=== PATIENT | female | born 1985 | race Hispanic/Latino ===

== ENCOUNTER 2023-04-11 20:22 | Emergency (ER) | payer MEDICAID, OTHER ==
[~2023-04-11] VITALS: Ht 162.6 cm; Wt 134.7 kg
[2023-04-11 22:42] LABS: HEMATOCRIT 38.1 % (36-48); MEAN CORPUSCULAR HEMOGLOBIN 29.1 pg (27.0-33.0); MEAN CORPUSCULAR HGB CONC 33.3 g/dL (32.0-36.0); MEAN CORPUSCULAR VOLUME 87.4 fL (79-99); RED BLOOD CELL COUNT(AUTO) 4.36 MIL/uL (4.00-5.50); RED CELL DISTRIBUTION WIDTH 16.8 % (11.0-15.5); WHITE BLOOD COUNT (AUTO) 7.9 K/uL (4.8-10.8)
[2023-04-11 22:53] LABS: CREATININE 0.9 mg/dL (0.5-1.5); POTASSIUM 3.3 mmol/L (3.5-5.1)
[2023-04-11] MEDS ORDERED: KETOROLAC 30MG VIAL (30MG/ML) IVP ONE (23:00)
[2023-04-11] MEDS ORDERED: METOCLOPRAMIDE 10 MG/2 ML VIAL IVP ONE (23:00)
[2023-04-11] MEDS ORDERED: MECLIZINE HCL 25 MG TABLET PO ONE (23:00)
[2023-04-11] MEDS ORDERED: FAMOTIDINE 20MG VIAL IV ONE (23:00)
[2023-04-11 23:59] VITALS: BP 138/66; PULSE 69; RESP 16; O2SAT 98
[2023-04-12] MEDS ORDERED: METO-296 PO (00:07)
[2023-04-12] MEDS ORDERED: CYCL10TA16 PO (00:07)
[2023-04-12] MEDS ORDERED: MECL-302 PO (00:07)
== END 2023-04-12 00:18 | disposition home or self-care (01) ==
LOC: EDH 20:22
DX: G44.209 Tension-type headache, unspecified, not intractable (principal); H81.10 Benign paroxysmal vertigo, unspecified ear; M62.830 Muscle spasm of back; Z90.49 Acquired absence of other specified parts of digestive tract
CPT/HCPCS: 99284; 96374; 96375; 82550; 84484; 80048; 85027; 36415; 93005; J3490; J1885; J2765

== ENCOUNTER 2023-09-17 01:04 | Emergency (ER) | payer OTHER ==
[~2023-09-17] VITALS: Ht 162.6 cm; Wt 134.7 kg
[~2023-09-17 01:04] MED LIST: CYCL10TA16 PO; MECL-160 PO; METO-296 PO
[2023-09-17 01:59] LABS: BASOPHILS # (AUTO) 0.02 K/uL (0.00-0.20); BASOPHILS % (AUTO) 0.2 % (0.0-5.0); EOSINOPHILS % (AUTO) 1.2 % (0.0-8.0); IMMATURE GRANULOCYTE ABSOLUTE 0.03 K/uL (0-1); LYMPHOCYTES % (AUTO) 24.2 % (21.0-51.0); MEAN CORPUSCULAR HEMOGLOBIN 31.9 pg (27.0-33.0); MEAN CORPUSCULAR HGB CONC 34.2 g/dL (32.0-36.0); MEAN CORPUSCULAR VOLUME 93.4 fL (79-99); MONOCYTES # (AUTO) 0.5 K/uL (0.1-1.0); MONOCYTES % (AUTO) 6.5 % (3.0-13.0); NEUTROPHILS # (AUTO) 5.6 K/uL (1.8-7.7); NEUTROPHILS % (AUTO) 67.5 % (40.0-77.0); PLATELET COUNT (AUTO) 282 K/uL (130-400); RED BLOOD CELL COUNT(AUTO) 4.07 MIL/uL (4.00-5.50); RED CELL DISTRIBUTION WIDTH 12.5 % (11.0-15.5); WHITE BLOOD COUNT (AUTO) 8.3 K/uL (4.8-10.8)
[2023-09-17 02:11] LABS: CREATININE 0.8 mg/dL (0.5-1.5); POTASSIUM 3.7 mmol/L (3.5-5.1)
[2023-09-17 02:15] LABS: ALBUMIN 3.6 g/dL (3.5-5.0); BILIRUBIN,TOTAL 0.3 mg/dL (0.2-1.0); TOTAL PROTEIN, SERUM 7.4 g/dL (6.0-8.3)
[2023-09-17 03:48] LABS: ADD UA MICROSCOPIC YES; BILIRUBIN,URINE NEGATIVE (NEGATIVE); COLOR,URINE RED (YELLOW); GLUCOSE, URINE (UA) NEGATIVE (NEGATIVE); KETONES,URINE NEGATIVE (NEGATIVE); LEUKOCYTE ESTERASE ,URINE TRACE Leu/uL (NEGATIVE); NITRATE,URINE NEGATIVE (NEGATIVE); OCCULT BLOOD,URINE LARGE (NEGATIVE); PROTEIN,URINE 100 mg/dL (NEGATIVE); UROBILINOGEN,URINE 0.2 mg/dL (0.2-1.0)
[2023-09-17 03:56] LABS: APPEARANCE,URINE CLEAR (CLEAR)
[2023-09-17 04:01] LABS: BACTERIA,URINE Few /HPF (None Seen); SQUAMOUS EPITHELIAL CELL,UR Rare /HPF (0-2)
[2023-09-17] MEDS: LORAZEPAM 1 MG TABLET PO ONE (05:50)
[2023-09-17 07:08] VITALS: BP 135/74; PULSE 73; RESP 18; O2SAT 100
== END 2023-09-17 07:12 | disposition home or self-care (01) ==
LOC: EDH 01:04
DX: R20.2 Paresthesia of skin (principal); J45.909 Unspecified asthma, uncomplicated; Z79.899 Other long term (current) drug therapy; Z90.49 Acquired absence of other specified parts of digestive tract
CPT/HCPCS: 36415; 80053; 81001; 81025; 85025

== ENCOUNTER 2023-10-16 16:39 | Emergency (ER) | payer OTHER ==
[~2023-10-16] VITALS: Ht 162.6 cm; Wt 132.0 kg
[~2023-10-16 16:39] MED LIST changes: -MECL-160 PO; +MECL-302 PO
[2023-10-16 17:41] LABS: BASOPHILS # (AUTO) 0.03 K/uL (0.00-0.20); BASOPHILS % (AUTO) 0.4 % (0.0-5.0); EOSINOPHILS # (AUTO) 0.04 K/uL (0.00-0.70); EOSINOPHILS % (AUTO) 0.6 % (0.0-8.0); HEMATOCRIT 38.4 % (36-48); IMMATURE GRANULOCYTE ABSOLUTE 0.03 K/uL (0-1); LYMPHOCYTES # (AUTO) 1.4 K/uL (1.0-4.8); LYMPHOCYTES % (AUTO) 20.2 % (21.0-51.0); MEAN CORPUSCULAR HEMOGLOBIN 32.1 pg (27.0-33.0); MEAN CORPUSCULAR HGB CONC 34.9 g/dL (32.0-36.0); MEAN CORPUSCULAR VOLUME 91.9 fL (79-99); MONOCYTES # (AUTO) 0.4 K/uL (0.1-1.0); MONOCYTES % (AUTO) 5.8 % (3.0-13.0); NEUTROPHILS # (AUTO) 5.2 K/uL (1.8-7.7); NEUTROPHILS % (AUTO) 72.6 % (40.0-77.0); PLATELET COUNT (AUTO) 297 K/uL (130-400); RED BLOOD CELL COUNT(AUTO) 4.18 MIL/uL (4.00-5.50); RED CELL DISTRIBUTION WIDTH 12.5 % (11.0-15.5); WHITE BLOOD COUNT (AUTO) 7.1 K/uL (4.8-10.8)
[2023-10-16 17:54] LABS: CREATININE 0.7 mg/dL (0.5-1.0)
[2023-10-16 17:58] LABS: ALBUMIN 3.9 g/dL (3.5-5.0); BILIRUBIN,TOTAL 0.5 mg/dL (0.2-1.0); TOTAL PROTEIN, SERUM 7.9 g/dL (6.0-8.3)
[2023-10-16] MEDS: METOCLOPRAMIDE 10 MG/2 ML VIAL IVP ONE (18:24)
[2023-10-16] MEDS: 0.9%NACL 1000ML 1,000 ML IV ONE (18:24)
[2023-10-16] MEDS: CHLORPROMAZINE HCL 25 MG/ML 1ML AMP IM SCH (18:24)
[2023-10-16] MEDS: SUMATRIPTAN SUCCINATE 25 MG TABLET PO SCH (18:24)
[2023-10-16] MEDS: FAMOTIDINE 20MG VIAL IV ONE (18:24)
[2023-10-16] MEDS: KETOROLAC 30MG VIAL (30MG/ML) IVP ONE (20:20)
[2023-10-16 20:53] VITALS: BP 120/78; PULSE 80; RESP 18; O2SAT 100
== END 2023-10-16 20:57 | disposition home or self-care (01) ==
LOC: EDH 16:39
DX: G43.909 Migraine, unspecified, not intractable, without status migrainosus (principal); R42 Dizziness and giddiness; J45.909 Unspecified asthma, uncomplicated; Z79.899 Other long term (current) drug therapy; Z98.890 Other specified postprocedural states
CPT/HCPCS: 99285; 96374; 70450; 96361; 96375; 84484; 80053; 84703; 85025; 36415; 93005; 96372; J3490; J7030; J3230; J1885; J2765

== ENCOUNTER 2023-12-03 14:04 | Inpatient (IN) | payer OTHER ==
[~2023-12-03] VITALS: Ht 162.6 cm; Wt 132.0 kg
[2023-12-03] MEDS: KETOROLAC 30MG VIAL (30MG/ML) IVP ONE (14:30)
[2023-12-03 15:06] LABS: BASOPHILS # (AUTO) 0.04 K/uL (0.00-0.20); BASOPHILS % (AUTO) 0.2 % (0.0-5.0); EOSINOPHILS # (AUTO) 0.06 K/uL (0.00-0.70); EOSINOPHILS % (AUTO) 0.3 % (0.0-8.0); HEMATOCRIT 38.7 % (36-48); IMMATURE GRANULOCYTE ABSOLUTE 0.07 K/uL (0-1); LYMPHOCYTES # (AUTO) 1.4 K/uL (1.0-4.8); MEAN CORPUSCULAR HEMOGLOBIN 31.9 pg (27.0-33.0); MEAN CORPUSCULAR HGB CONC 33.9 g/dL (32.0-36.0); MEAN CORPUSCULAR VOLUME 94.2 fL (79-99); MONOCYTES % (AUTO) 4.9 % (3.0-13.0); NEUTROPHILS # (AUTO) 17.2 K/uL (1.8-7.7); NEUTROPHILS % (AUTO) 87.2 % (40.0-77.0); PLATELET COUNT (AUTO) 266 K/uL (130-400); RED BLOOD CELL COUNT(AUTO) 4.11 MIL/uL (4.00-5.50); RED CELL DISTRIBUTION WIDTH 12.2 % (11.0-15.5); WHITE BLOOD COUNT (AUTO) 19.7 K/uL (4.8-10.8)
[2023-12-03 15:15] LABS: POTASSIUM 3.7 mmol/L (3.5-5.1)
[2023-12-03 15:20] LABS: ALBUMIN 3.5 g/dL (3.5-5.0); BILIRUBIN,TOTAL 0.3 mg/dL (0.2-1.0); TOTAL PROTEIN, SERUM 7.3 g/dL (6.0-8.3)
[2023-12-03] MEDS: 0.9%NACL 1000ML 1,000 ML IV ONE (15:45)
[2023-12-03] MEDS: ZOSYN 3.375GM +NS 50ML IVPB ONE (15:45)
[2023-12-03 15:53] LABS: APPEARANCE,URINE CLOUDY (CLEAR); BILIRUBIN,URINE NEGATIVE (NEGATIVE); COLOR,URINE LIGHT-YELLOW (YELLOW); GLUCOSE, URINE (UA) NEGATIVE (NEGATIVE); KETONES,URINE NEGATIVE (NEGATIVE); LEUKOCYTE ESTERASE ,URINE NEGATIVE Leu/uL (NEGATIVE); NITRATE,URINE NEGATIVE (NEGATIVE); OCCULT BLOOD,URINE LARGE (NEGATIVE); PROTEIN,URINE NEGATIVE (NEGATIVE); UROBILINOGEN,URINE 0.2 mg/dL (0.2-1.0)
[2023-12-03 15:54] LABS: ADD UA MICROSCOPIC YES
[2023-12-03 15:55] LABS: HCG,QUALITATIVE URINE NEGATIVE (NEGATIVE)
[2023-12-03 15:57] LABS: BACTERIA,URINE RARE /HPF (None Seen); RBC,URINE >100 /HPF (0-1); SQUAMOUS EPITHELIAL CELL,UR FEW /HPF (0-2); UNCLASSIFIED CRYSTAL 1 /HPF (None Seen)
[2023-12-03] MEDS ORDERED: MEPERIDINE-PF 50 MG/ML SYG IM PRN (19:30)
[2023-12-03] MEDS ORDERED: DiphenhydrAMINE HCL 50 MG/ML VIAL IV PRN (19:30)
[2023-12-03] MEDS: DEXTROSE 5 %-0.45 % NACL 1,000 ML IV SCH (21:08)
[2023-12-03 21:09] VITALS: O2SAT 96
[2023-12-04 00:10] VITALS: BP 113/66; PULSE 73; RESP 19
[2023-12-04 04:00] VITALS: BP 109/67; PULSE 86; RESP 19
[2023-12-04 04:11] LABS: BASOPHILS # (AUTO) 0.02 K/uL (0.00-0.20); BASOPHILS % (AUTO) 0.2 % (0.0-5.0); EOSINOPHILS # (AUTO) 0.04 K/uL (0.00-0.70); EOSINOPHILS % (AUTO) 0.4 % (0.0-8.0); HEMATOCRIT 36.7 % (36-48); IMMATURE GRANULOCYTE ABSOLUTE 0.04 K/uL (0-1); LYMPHOCYTES # (AUTO) 1.7 K/uL (1.0-4.8); MEAN CORPUSCULAR HEMOGLOBIN 31.2 pg (27.0-33.0); MEAN CORPUSCULAR HGB CONC 33.5 g/dL (32.0-36.0); MEAN CORPUSCULAR VOLUME 93.1 fL (79-99); MONOCYTES # (AUTO) 0.8 K/uL (0.1-1.0); MONOCYTES % (AUTO) 7.5 % (3.0-13.0); NEUTROPHILS # (AUTO) 7.9 K/uL (1.8-7.7); NEUTROPHILS % (AUTO) 75.5 % (40.0-77.0); PLATELET COUNT (AUTO) 258 K/uL (130-400); RED BLOOD CELL COUNT(AUTO) 3.94 MIL/uL (4.00-5.50); RED CELL DISTRIBUTION WIDTH 12.2 % (11.0-15.5); WHITE BLOOD COUNT (AUTO) 10.5 K/uL (4.8-10.8)
[2023-12-04 04:24] LABS: CREATININE 0.6 mg/dL (0.5-1.0); POTASSIUM 3.6 mmol/L (3.5-5.1)
[2023-12-04 08:00] VITALS: BP 120/75; PULSE 76; RESP 19
[2023-12-04 09:26] LABS: BASOPHILS # (AUTO) 0.02 K/uL (0.00-0.20); BASOPHILS % (AUTO) 0.2 % (0.0-5.0); EOSINOPHILS # (AUTO) 0.09 K/uL (0.00-0.70); HEMATOCRIT 36.9 % (36-48); IMMATURE GRANULOCYTE ABSOLUTE 0.03 K/uL (0-1); LYMPHOCYTES # (AUTO) 1.6 K/uL (1.0-4.8); LYMPHOCYTES % (AUTO) 17.6 % (21.0-51.0); MEAN CORPUSCULAR HEMOGLOBIN 31.1 pg (27.0-33.0); MEAN CORPUSCULAR HGB CONC 33.3 g/dL (32.0-36.0); MEAN CORPUSCULAR VOLUME 93.4 fL (79-99); MONOCYTES # (AUTO) 0.8 K/uL (0.1-1.0); MONOCYTES % (AUTO) 8.4 % (3.0-13.0); NEUTROPHILS # (AUTO) 6.8 K/uL (1.8-7.7); NEUTROPHILS % (AUTO) 72.5 % (40.0-77.0); PLATELET COUNT (AUTO) 255 K/uL (130-400); RED BLOOD CELL COUNT(AUTO) 3.95 MIL/uL (4.00-5.50); RED CELL DISTRIBUTION WIDTH 12.4 % (11.0-15.5); WHITE BLOOD COUNT (AUTO) 9.3 K/uL (4.8-10.8)
[2023-12-04 11:57] VITALS: BP 101/55; PULSE 69; RESP 16
[2023-12-04] MEDS ORDERED: 0.9%NACL 50ML IV SCH (12:00)
[2023-12-04] MEDS: ZOSYN 3.375GM +NS 50ML IVPB SCH (13:31)
[2023-12-04 16:12] VITALS: BP 114/70; PULSE 60
[2023-12-04] MEDS ORDERED: ACETAMINOPHEN 325 MG TAB PO PRN (17:30)
[2023-12-04 19:14] VITALS: BP 117/48; PULSE 68; RESP 18
[2023-12-05] VITALS (7 sets, daily range): BP systolic 98–116; BP diastolic 54–78; PULSE 57–76; RESP 18–20
[2023-12-06] VITALS (26 sets, daily range): BP systolic 110–153; BP diastolic 54–98; PULSE 54–68; RESP 15–21
[2023-12-06] MEDS ORDERED: FENTANYL CITRATE PF 50 MCG/1 ML 5ML AMP IV ONE (05:57)
[2023-12-06] MEDS ORDERED: MIDAZOLAM HCL 1 MG/ML 2ML VIAL ONE (05:57)
[2023-12-06] MEDS ORDERED: PROPOFOL 10 MG/ML 20ML VIAL IV ONE (05:57)
[2023-12-06 06:01] LABS: BASOPHILS # (AUTO) 0.02 K/uL (0.00-0.20); BASOPHILS % (AUTO) 0.3 % (0.0-5.0); EOSINOPHILS % (AUTO) 1.4 % (0.0-8.0); HEMATOCRIT 34.7 % (36-48); IMMATURE GRANULOCYTE ABSOLUTE 0.03 K/uL (0-1); LYMPHOCYTES # (AUTO) 1.5 K/uL (1.0-4.8); MEAN CORPUSCULAR HEMOGLOBIN 31.2 pg (27.0-33.0); MEAN CORPUSCULAR VOLUME 91.8 fL (79-99); MONOCYTES # (AUTO) 0.6 K/uL (0.1-1.0); MONOCYTES % (AUTO) 7.7 % (3.0-13.0); NEUTROPHILS % (AUTO) 69.2 % (40.0-77.0); PLATELET COUNT (AUTO) 240 K/uL (130-400); RED BLOOD CELL COUNT(AUTO) 3.78 MIL/uL (4.00-5.50); RED CELL DISTRIBUTION WIDTH 12.1 % (11.0-15.5); WHITE BLOOD COUNT (AUTO) 7.2 K/uL (4.8-10.8)
[2023-12-06] MEDS ORDERED: ROCURONIUM BROMIDE 10MG/1ML 5ML VL ONE ×2 (06:05→07:39)
[2023-12-06] MEDS ORDERED: ONDANSETRON 4MG INJ ONE (06:06)
[2023-12-06] MEDS ORDERED: ROPIVACAINE 0.5% 5MG/ML 30ML ONE (06:10)
[2023-12-06] MEDS ORDERED: KETAMINE 50MG/ML SYRINGE 50 MG/ML DISP.SYRIN ONE (06:10)
[2023-12-06] MEDS ORDERED: MORPHINE PF 100MG/10ML AMP IV ONE (06:10)
[2023-12-06] MEDS ORDERED: DEXAMETHASONE SOD PHOSPHATE 10MG/ML 1ML VIAL ONE (06:11)
[2023-12-06 06:19] LABS: CREATININE 0.8 mg/dL (0.5-1.0); POTASSIUM 3.4 mmol/L (3.5-5.1)
[2023-12-06] MEDS ORDERED: PHENYLEPHRINE HCL 10 MG/ML 1ML VIAL IV ONE (07:04)
[2023-12-06] MEDS ORDERED: SUGAMMADEX SODIUM 200 MG/2 ML VIAL IV ONE (08:15)
[2023-12-06] MEDS ORDERED: FENTANYL CITRATE PF 50 MCG/1 ML 2ML VIAL ONE (08:15)
[2023-12-06] MEDS: METOCLOPRAMIDE 10 MG/2 ML VIAL ONE (09:00)
[2023-12-06] MEDS: MEPERIDINE-PF 25 MG/ML SYG ONE (09:00)
[2023-12-06] MEDS ORDERED: DEXTROSE 5 %-0.45 % NACL 1,000 ML IV PRN (10:00)
[2023-12-06] MEDS ORDERED: BISACODYL 10 MG SUPP.RECT RC PRN (10:00)
[2023-12-06] MEDS ORDERED: PROMETHAZINE HCL 25 MG/ML 1ML AMPULE IM PRN (10:00)
[2023-12-06] MEDS: PROMETHAZINE HCL 25 MG/ML 1ML AMPULE IM PRN (12:17)
[2023-12-06] MEDS: MEPERIDINE-PF 75 MG/ML SYG IM PRN (12:18)
[2023-12-06] MEDS: ACETAMINOPHEN WITH CODEINE 1 TAB TAB PO PRN (15:46)
[2023-12-06 16:54] LABS: HEMATOCRIT 34.8 % (36-48)
[2023-12-07] MEDS ORDERED: HYDROCODONE/ACETAMINOPHEN 5/325 MG TAB PO PRN ×2 (01:00→10:00)
[2023-12-07 03:22] VITALS: BP 108/65; PULSE 57; RESP 18
[2023-12-07 06:33] LABS: BASOPHILS # (AUTO) 0.02 K/uL (0.00-0.20); BASOPHILS % (AUTO) 0.2 % (0.0-5.0); EOSINOPHILS # (AUTO) 0.01 K/uL (0.00-0.70); EOSINOPHILS % (AUTO) 0.1 % (0.0-8.0); HEMATOCRIT 29.7 % (36-48); IMMATURE GRANULOCYTE ABSOLUTE 0.05 K/uL (0-1); LYMPHOCYTES # (AUTO) 1.7 K/uL (1.0-4.8); LYMPHOCYTES % (AUTO) 17.9 % (21.0-51.0); MEAN CORPUSCULAR HEMOGLOBIN 31.8 pg (27.0-33.0); MEAN CORPUSCULAR HGB CONC 34.7 g/dL (32.0-36.0); MEAN CORPUSCULAR VOLUME 91.7 fL (79-99); MONOCYTES # (AUTO) 0.9 K/uL (0.1-1.0); MONOCYTES % (AUTO) 9.7 % (3.0-13.0); NEUTROPHILS # (AUTO) 6.6 K/uL (1.8-7.7); NEUTROPHILS % (AUTO) 71.6 % (40.0-77.0); PLATELET COUNT (AUTO) 232 K/uL (130-400); RED BLOOD CELL COUNT(AUTO) 3.24 MIL/uL (4.00-5.50); RED CELL DISTRIBUTION WIDTH 11.9 % (11.0-15.5); WHITE BLOOD COUNT (AUTO) 9.2 K/uL (4.8-10.8)
[2023-12-07 07:28] VITALS: BP 119/79; PULSE 63
[2023-12-07] MEDS: DOCUSATE SODIUM 100 MG CAP PO PRN (08:59)
[2023-12-07] MEDS: IBUPROFEN 600 MG TABLET PO PRN (08:59)
[2023-12-07] MEDS: SIMETHICONE 80 MG TAB.CHEW PO PRN (08:59)
[2023-12-07 11:21] VITALS: BP 107/56; PULSE 66
[2023-12-07 15:15] VITALS: BP 124/71; PULSE 62; RESP 20
[2023-12-07] MEDS: IBUPROFEN 800 MG TAB PO PRN (16:42)
[2023-12-07 19:27] VITALS: BP 103/57; PULSE 73; RESP 20
[2023-12-07] MEDS: ACETAMINOPHEN WITH CODEINE 1 TAB TAB PO PRN (20:37)
[2023-12-07 23:18] VITALS: BP 108/58; PULSE 62; RESP 20
[2023-12-08 03:33] VITALS: BP 106/59; PULSE 76; RESP 20
[2023-12-08 07:10] VITALS: BP 102/54; PULSE 71; RESP 20
== END 2023-12-08 08:40 | disposition home or self-care (01) | DRG 742 ==
LOC: EDH 14:04 → EDHIP 14:05 → WSH 22:34
PROVIDERS: ADMIT Obstetrics & Gynecology; ATTEND Obstetrics & Gynecology
PROC: 0UT90ZZ Resection of Uterus, Open Approach (ICD-10-PCS; principal; 2023-12-03)
PROC: 0UT50ZZ Resection of Right Fallopian Tube, Open Approach (ICD-10-PCS; 2023-12-03)
PROC: 0UT10ZZ Resection of Left Ovary, Open Approach (ICD-10-PCS; 2023-12-03)
DX: D25.9 Leiomyoma of uterus, unspecified (principal); N13.6 Pyonephrosis; J45.909 Unspecified asthma, uncomplicated; N92.0 Excessive and frequent menstruation with regular cycle; Z90.49 Acquired absence of other specified parts of digestive tract
CPT/HCPCS: 36415; 74177; 76856; 80048; 80053; 81001; 81025; 83605; 83690; 85014; 85018; 85025; 86850; 86900; 86901; 86923; 87040; 87088; 87486; 87797; A4344; G0378; J1100; J1885; J2175; J2250; J2274; J2371; J2405; J2543; J2550; J2704; J2765; J2795; J3010; J3490; J7030; A4216; A4222; A4223; A4452; A4600; A4649

== ENCOUNTER 2023-12-10 12:07 | Emergency (ER) | payer OTHER ==
[~2023-12-10] VITALS: Ht 162.6 cm; Wt 132.0 kg
[2023-12-10 12:12] VITALS: BP 129/82; PULSE 84; RESP 18; O2SAT 98
[2023-12-10] MEDS: OCTYL 2-CYANOACRYLATE 1 EACH TP STA (15:38)
[2023-12-10] MEDS ORDERED: CEPH500T PO (15:48)
== END 2023-12-10 16:00 | disposition home or self-care (01) ==
LOC: EDH 12:07
DX: Z48.00 Encounter for change or removal of nonsurgical wound dressing (principal); Z04.9 Encounter for examination and observation for unspecified reason; Z79.899 Other long term (current) drug therapy

== ENCOUNTER 2025-02-01 04:08 | Emergency (ER) | payer SELFPAY ==
[~2025-02-01] VITALS: Ht 162.6 cm; Wt 145.1 kg
[~2025-02-01 04:08] MED LIST changes: +CEPH500T PO; -CYCL10TA16 PO; -MECL-302 PO; -METO-296 PO
--- NOTE | 2025-02-01 04:11 | NUR ---
UA CUP PROVIDED
--- NOTE | 2025-02-01 04:13 | NUR ---
CALLED FOR EKG. PT IN RESTROOM
--- NOTE | 2025-02-01 04:48 | HMCIMG ---
EXAM: CR Chest, 1 view. CLINICAL HISTORY: Chest pain. COMPARISON: Chest x-ray dated 01/29/25. FINDINGS: The lungs show no infiltrate or other acute findings. No pleural effusion or pneumothorax. The cardiomediastinal silhouette is within normal limits. No acute osseous abnormality. IMPRESSION: No acute cardiopulmonary pathology is evident. No gross interval changes. /[place]
[2025-02-01 05:21] LABS: ADD UA MICROSCOPIC NO; APPEARANCE,URINE CLEAR (CLEAR); GLUCOSE, URINE (UA) NEGATIVE (NEGATIVE); LEUKOCYTE ESTERASE ,URINE NEGATIVE Leu/uL (NEGATIVE); NITRATE,URINE NEGATIVE (NEGATIVE); OCCULT BLOOD,URINE NEGATIVE (NEGATIVE)
--- NOTE | 2025-02-01 05:25 | NUR ---
PT CARE ASSUMED AT THIS TIME
[2025-02-01 05:32] LABS: IMMATURE GRANULOCYTE ABSOLUTE 0.05 K/uL (0-1); NUCLEATED RED BLOOD CELLS 0.0 % (0.0-0.19); PLATELET COUNT (AUTO) 260 K/uL (130-400); RED BLOOD CELL COUNT(AUTO) 4.08 MIL/uL (4.00-5.50); RED CELL DISTRIBUTION WIDTH 12.4 % (11.0-15.5); WHITE BLOOD COUNT (AUTO) 9.0 K/uL (4.8-10.8)
[2025-02-01] MEDS: LACTATED RINGERS 1000ML IV STA (05:36)
--- NOTE | 2025-02-01 05:39 | ERN ---
General Chief Complaint: Chest Pain Stated Complaint: CHEST PAIN Time Seen by MD: 05:16 Source: patient History of Present Illness Initial Comments 39-year-old obese female otherwise healthy who yesterday experienced palpitations and left shoulder chest pain that extended a little bit down her left arm. It resolved yesterday but then recurred again today and she comes to the hospital for evaluation. No fevers or chills positive nausea no emesis. Regular bowel movements regular urination. Allergies: Coded Allergies: No Known Drug Allergies (Unverified Allergy, Unknown, 04/11/23) Home Meds Active Scripts Cephalexin (Cephalexin) 500 Mg Tablet, 500 MG PO BID for 5 Days, #10 TAB Prov:MARK LEMON [employer] 12/10/23 Past Medical History Past Medical History: Asthma Past Surgical History: Hysterectomy, Cholecystectomy Family History Family History: Negative Social History Social History: Negative, Lives with family Female( History) History: Not Applicable Constitutional: (-) chills, (-) diaphoresis, (-) fever, (-) malaise, (-) weakness, (-) other documentation EENTM: (-) eye pain, (-) blurred vision, (-) tearing, (-) double vision, (-) ear pain, (-) ear discharge, (-) nose pain, (-) nose congestion, (-) throat pain, (-) Throat swelling, (-) mouth pain, (-) tooth pain, (-) mouth swelling, (-) other documentation Respiratory: (-) cough, (-) orthopnea, (-) short of breath, (-) stridor, (-) wheezing, (-) other documentation Cardiovascular: (+) palpitations Gastrointestinal/Abdominal: (+) nausea Genitourinary: (-) vaginal discharge, (-) vaginal bleeding, (-) dysuria, (-) frequency, (-) hematuria, (-) pain, (-) other documentation Musculoskeletal: (-) Neck pain, (-) back pain, (-) Flank Pain, (-) joint pain, (-) joint swelling, (-) muscle pain, (-) muscle stiffness, (-) gout, (-) other documentation Physical Exam General Appearance: (+) mild distress Orientation: (+) alert, (+) oriented x 3 Head/Face Trauma: No Eye: bilateral eye normal inspection, bilateral eye PERRL, bilateral eye EOMI Ear, Nose, Throat: (+) hearing grossly normal, (+) normal ENT inspection, (+) moist mucous membraine Neck: (+) normal inspection, (+) supple, (+) full range of motion Respiratory: (+) chest non-tender, (+) lungs clear, (+) well ventilated Heart: (+) regular, (+) no gallop Vascular: (+) no edema, (+) normal peripheral pulse Gastrointestinal: (+) soft, (+) non-tender, (+) bowel sound present Results Laboratory and Microbiology Lab and Micro Result Laboratory Tests Test 02/01/25 05:11 02/01/25 05:23 Urine Color COLORLESS (YELLOW) Urine Appearance CLEAR (CLEAR) Urine pH 5.0 (5.0-8.0) Urine Specific [place] 1.007 (1.001-1.031) Urine Protein NEGATIVE mg/dL (NEGATIVE) Urine Glucose (UA) NEGATIVE mg/dL (NEGATIVE) Urine Ketones NEGATIVE mg/dL (NEGATIVE) Urine Occult Blood NEGATIVE (NEGATIVE) Urine Nitrate NEGATIVE (NEGATIVE) Urine Bilirubin NEGATIVE mg/dL (NEGATIVE) Urine Urobilinogen 0.2 mg/dL (0.2-1.0) Urine Leukocyte Esterase NEGATIVE [place]/uL White Blood Count 9.0 K/uL (4.8-10.8) Red Blood Count 4.08 MIL/uL (4.00-5.50) Hemoglobin 13.2 g/dL (12.0-16.0) Hematocrit 38.2 % (36-48) Mean Corpuscular Volume 93.6 fL (79-99) Mean Corpuscular Hemoglobin 32.4 pg (27.0-33.0) Mean Corpuscular Hemoglobin Concent 34.6 g/dL (32.0-36.0) Red Cell Distribution Width 12.4 % (11.0-15.5) Platelet Count 260 K/uL (130-400) Mean Platelet Volume 8.3 fL (7.5-10.5) Immature Granulocyte % (Auto) 0.6 % (0-1) Neutrophils (%) (Auto) 64.4 % (40.0-77.0) Lymphocytes (%) (Auto) 24.9 % (21.0-51.0) Monocytes (%) (Auto) 8.2 % (3.0-13.0) Eosinophils (%) (Auto) 1.5 % (0.0-8.0) Basophils (%) (Auto) 0.4 % (0.0-5.0) Neutrophils # (Auto) 5.8 K/uL (1.8-7.7) Lymphocytes # (Auto) 2.3 K/uL (1.0-4.8) Monocytes # (Auto) 0.7 K/uL (0.1-1.0) Eosinophils # (Auto) 0.14 K/uL (0.00-0.70) Basophils # (Auto) 0.04 K/uL (0.00-0.20) Absolute Immature Granulocyte (auto 0.05 K/uL (0-1) Nucleated Red Blood Cells 0.0 % (0.0-0.19) Sodium Level 136 mmol/L (136-145) Potassium Level 3.8 mmol/L (3.5-5.1) Chloride Level 101 mmol/L (101-111) Carbon Dioxide Level 28 mmol/L (21-32) Blood Urea Nitrogen 12 mg/dL (7-18) Creatinine 0.8 mg/dL (0.5-1.0) Glomerular Filtration Rate Calc 97 mL/min (>90) Random Glucose 100 mg/dL (70-105) Total Calcium 8.8 mg/dL (8.5-10.1) Total Creatine Kinase 181 U/L (21-232) # Troponin I High Sensitivity < 4 ng/L (4-50) L MDM MDM: Differential diagnosis: Patient may have intermittent atrial fibrillation, cardiac ischemia, dehydration, anxiety, hyperventilation syndrome, upper respiratory tract infection. Rationale: Tests considered and ordered secondary to shared decision making include: Previous outside records reviewed: Old ER visits. Risk of complication and/or morbidity or mortality of patient management: None Medications-Per medication reconciliation Need for hospitalization: Patient does meet criteria for hospitalization. Need for emergency major/minor surgery: No There are no social concerns with this patient. Prescription drug management Prescriptions will include symptomatic care Patient's prior external medical records from other ER visits were reviewed by me as indicated. Prior testing and results from previous visits were reviewed. Prior tests were taken into account with medical decision making and resource utilization, independent historian/historians were used to obtain complete medical history. I independently interpreted the test that were performed, results were reviewed by me and considered findings on radiology if ordered. Patient's cardiac workup is negative patient's CBC and BMP and UA are all normal. Patient's chest x-ray is normal as well. Patient does feel a little bit better. She is in normal sinus rhythm normal blood pressure. Once she has completed her L of fluid she can go home. ED Course Orders Procedure Category Date Status Time Vital Signs Per CPOE 02/01/25 Transmitted Routine 04:11 Chest 1vw RAD 02/01/25 Resulted 04:11 12 Lead Ekg Tracing- EKG 02/01/25 Logged Technical 04:11 Oxygen By Nc/Pulse Ox CPOE 02/01/25 Transmitted 04:11 Maintain Iv CPOE 02/01/25 Transmitted 04:11 Iv Insertion CPOE 02/01/25 Transmitted 04:11 Cardiac Monitoring CPOE 02/01/25 Transmitted 04:11 Pulse Oximetry With CPOE 02/01/25 Transmitted Vs And Prn 04:11 Cbc With Differential LAB 02/01/25 Complete 04:11 Activity: Br W/Brp CPOE 02/01/25 Transmitted With Assist 04:11 Creatine Kinase, Total LAB 02/01/25 Complete 04:11 Troponin I High LAB 02/01/25 Complete Sensitivity 04:11 Urinalysis Profile LAB 02/01/25 Complete 04:11 Basic Metabolic Panel LAB 02/01/25 Complete 04:11 Lactated Ringers PHA 02/01/25 Complete 1000ml (Lactated 05:16 Current Medications Medications (Trade) Dose Ordered Sig/Ana Route PRN Reason Start Time Stop Time Status Last Admin Dose Admin Lactated Ringer's (Lactated Ringers 1000ml) 1,000 ml BOLUS STAT IV 02/01/25 05:16 02/01/25 05:19 DC 02/01/25 05:36 Vital Signs Date Time Temp Pulse Resp B/P (MAP) Pulse Ox O2 Delivery O2 Flow Rate FiO2 02/01/25 06:38 88 17 137/74 100 Room Air* 0 21 02/01/25 05:25 97.5 80 17 130/76 100 Room Air* 0 21 02/01/25 04:10 97.3 69 18 153/87 100 Room Air DX & DISP Disposition: Discharge Departure Impression: Primary Impression: Non-cardiac chest pain Condition: Stable Additional Instructions: Your cardiac workup is negative for injury to your heart. Your chest x-ray is normal. Your electrolytes are normal your urine is normal as well. If I had to hazard a guess I would say you were dehydrated. Please drink fluid every day to the point that your urine is clear at least once a day. For now rest assured that your heart is doing well. Feel free to return to the emergency room if these symptoms occur again. You can follow-up with her primary care physician as well. Referrals: SELF,REFERRAL (PCP) KOFFI KOHLER MD Feb 01, 2025 05:38
[2025-02-01 05:47] LABS: CREATINE KINASE, TOTAL 181.0 U/L (21-232); CREATININE 0.8 mg/dL (0.5-1.0); GLOMERULAR FILTR. RATE CALC 97.0 mL/min (>90); GLUCOSE,RANDOM 100.0 mg/dL (70-105); SODIUM SERUM 136.0 mmol/L (136-145); UREA NITROGEN, BLOOD 12.0 mg/dL (7-18)
--- NOTE | 2025-02-01 07:23 | EKG ---
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
[2025-02-01 07:33] VITALS: BP 137/78; PULSE 60; RESP 17; TEMP 98; O2SAT 99
== END 2025-02-01 07:50 | disposition home or self-care (01) ==
LOC: EDH 04:08
DX: R07.89 Other chest pain (principal); J45.909 Unspecified asthma, uncomplicated; E66.9 Obesity, unspecified; Z90.49 Acquired absence of other specified parts of digestive tract; Z90.710 Acquired absence of both cervix and uterus; Z68.43 Body mass index [BMI] 50.0-59.9, adult
CPT/HCPCS: 99285; 96360; 71045; 96361; 82550; 84484; 80048; 85025; 81003; 36415; 93005; J7120